=== PATIENT | female | born 1990 | race African-American/Black ===

== ENCOUNTER 2023-07-10 12:40 | Emergency (ER) | payer MEDICAID ==
[2023-07-10] MEDS ORDERED: Sulfamethoxazole/Trimethoprim 800-160 MG Tab PO ONE (15:09)
[2023-07-10] MEDS ORDERED: Take Home: Sulfamethoxazole/Trimethoprim 800-160 MG Tab, 6 Tab Pack PO ONE (15:09)
== END 2023-07-10 15:19 | disposition home or self-care (01) ==
LOC: DL.ED 12:40
DX: L02.212 Cutaneous abscess of back [any part, except buttock and flank] (principal); F17.210 Nicotine dependence, cigarettes, uncomplicated
CPT/HCPCS: 76536; 99283; A9270